=== PATIENT | female | born 1975 | race Caucasian/White ===

== ENCOUNTER → 2017-06-29 | Outpatient (REF) | payer BC, OTHER ==
[2017-06-29 19:20] LABS: RHEUMATOID FACTOR QUANT < 10.0 IU/ML (0-15.0)
[2017-07-02 00:07] LABS: ANTINUCLEAR ANTIBODIES DIRECT Negative (Negative); Lyme Disease IgG/IgM Antibodie <0.91 ISR (0.00-0.90); Lyme Disease IgM Ab Quantitati <0.80 index (0.00-0.79)
== END ==
LOC: M LAB REF 18:00
DX: M25.50 Pain in unspecified joint (principal); M79.1 Myalgia

== ENCOUNTER → 2017-07-09 | Outpatient (REF) | payer OTHER | LOC: M SFHCLERA 10:17 | DX: M54.5 Low back pain (principal) | CPT/HCPCS: 87186 ==

== ENCOUNTER → 2017-07-27 | Outpatient (REF) | payer OTHER | LOC: M LAB REF 12:40 | DX: N39.0 Urinary tract infection, site not specified (principal); M54.5 Low back pain ==

== ENCOUNTER → 2017-08-16 | Outpatient (REF) | payer OTHER | LOC: M LAB REF 09:48 | DX: K58.0 Irritable bowel syndrome with diarrhea (principal) ==

== ENCOUNTER → 2018-09-20 | Outpatient (REF) | payer OTHER ==
[2018-09-20 12:22] LABS: PERCENT SATURATION 25.3 % (13.2-45.0)
== END ==
LOC: M LAB REF 11:45
PROVIDERS: ATTEND Internal Medicine
DX: N92.0 Excessive and frequent menstruation with regular cycle (principal)

== ENCOUNTER → 2019-03-08 | Outpatient (CLI) | payer BC, OTHER ==
--- NOTE | 2019-03-08 16:24 | REP ---
Two-view chest: 03/08/2019. Indication: Cough. Dyspnea. Comparison: None. Findings: The lungs are clear. There is no significant pleural fluid or pneumothorax. Mediastinum and cardiac silhouettes are unremarkable. Impression: No acute cardiopulmonary process. Electronically Signed by Devan Downey DO 03/08/2019 04:16 P
== END ==
LOC: M LRY 16:02
PROVIDERS: ATTEND Nurse Practitioner Family
DX: R05 Cough (principal)

== ENCOUNTER → 2020-02-18 | Outpatient (CLI) | payer BC, OTHER ==
[2020-02-20 10:43] LABS: THYROGLOBULIN ANTIBODY 42.3 U/ML (<60.0); THYROID PEROXIDASE ANTIBODY 74.7 U/ML (<60.0)
== END ==
LOC: M WUC 09:06
PROVIDERS: ATTEND Internal Medicine
DX: R94.6 Abnormal results of thyroid function studies (principal)

== ENCOUNTER → 2021-11-19 | Outpatient (REF) | payer BC, OTHER | LOC: M SFHCDERM 14:23 | PROVIDERS: ATTEND Dermatology | DX: D22.9 Melanocytic nevi, unspecified (principal) ==

== ENCOUNTER → 2022-03-10 | Outpatient (CLI) | payer BC, OTHER | LOC: M WHC 15:25 | PROVIDERS: ATTEND Advanced Practice Midwife | DX: N92.6 Irregular menstruation, unspecified (principal) ==

== ENCOUNTER → 2023-05-08 | Outpatient (REF) | payer BC, OTHER ==
[2023-05-11 13:07] LABS: SSA SJOGRENS A <0.2 AI (0.0-0.9); SSB SJOGRENS B <0.2 AI (0.0-0.9)
== END ==
LOC: M LAB REF 16:41
PROVIDERS: ATTEND Internal Medicine
DX: K21.9 Gastro-esophageal reflux disease without esophagitis (principal)

== ENCOUNTER → 2023-05-15 | Outpatient (CLI) | payer BC, OTHER | LOC: M RAD 11:56 | PROVIDERS: ATTEND Internal Medicine | DX: E07.9 Disorder of thyroid, unspecified (principal) ==

== ENCOUNTER → 2023-06-13 | Outpatient (REF) | payer BC, OTHER | LOC: M LAB REF 10:45 | PROVIDERS: ATTEND Nurse Practitioner Family | DX: R19.7 Diarrhea, unspecified (principal) ==

== ENCOUNTER 2023-07-21 11:40 | Day surgery (SDC) | payer BC, OTHER ==
[~2023-07-21] VITALS: Ht 154.9 cm; Wt 106.0 kg
[~2023-07-21 11:40] MED LIST: IRBE75TA11 PO; PANT40TA29 PO; THERTAB52 PO
[2023-07-21] MEDS ORDERED: propofoL 200 MG/20 ML VIAL As Ordered ONE (12:48)
[2023-07-21] MEDS ORDERED: LIDOCAINE 2% 100MG/5ML SDV (FOR ANES.) As Ordered ONE (12:48)
[2023-07-21] MEDS ORDERED: fentaNYL 100 MCG/2 ML INJECTION As Ordered ONE (12:48)
[2023-07-21] MEDS: NS 1,000 ML IV ONE (12:50)
[2023-07-21 14:07] VITALS: TEMP 99.9
[2023-07-21 14:35] VITALS: BP 122/78; O2SAT 99
== END 2023-07-21 14:45 | disposition home or self-care (01) ==
LOC: M OPP 11:40
PROVIDERS: ATTEND Internal Medicine Gastroenterology
DX: R10.13 Epigastric pain (principal); K29.70 Gastritis, unspecified, without bleeding; K44.9 Diaphragmatic hernia without obstruction or gangrene; K21.9 Gastro-esophageal reflux disease without esophagitis; K64.8 Other hemorrhoids; K31.7 Polyp of stomach and duodenum; K58.9 Irritable bowel syndrome, unspecified; K57.30 Diverticulosis of large intestine without perforation or abscess without bleeding; K64.4 Residual hemorrhoidal skin tags; K22.89 Other specified disease of esophagus; I10 Essential (primary) hypertension; Z79.899 Other long term (current) drug therapy
CPT/HCPCS: 43239; 45385; 88305; J3010

== ENCOUNTER → 2023-08-08 | Outpatient (CLI) | payer BC, OTHER ==
[2023-08-08 14:56] LABS: BLOOD UREA NITROGEN 15 MG/DL (9-23); CREATININE FOR GFR 0.71 MG/DL (0.55-1.30); GLOMERULAR FILTRATION RATE > 60.0 (>51)
== END ==
LOC: M LAB 14:09
PROVIDERS: ATTEND Nurse Practitioner Family
DX: K86.81 Exocrine pancreatic insufficiency (principal)

== ENCOUNTER → 2023-09-24 | Outpatient (CLI) | payer BC ==
[~2023-09-24] MED LIST changes: +PROHANCE 279.3MG/ML 15ML VIAL As Ordered ONE; +PROHANCE 279.3MG/ML 5ML VIAL As Ordered ONE
== END ==
LOC: M RAD 15:58
PROVIDERS: ATTEND Nurse Practitioner Family
DX: K86.81 Exocrine pancreatic insufficiency (principal)

== ENCOUNTER → 2023-12-29 | Outpatient (REF) | payer BC, OTHER ==
[~2023-12-29] MED LIST changes: -PROHANCE 279.3MG/ML 15ML VIAL As Ordered ONE; -PROHANCE 279.3MG/ML 5ML VIAL As Ordered ONE
[2023-12-29 19:43] LABS: FERRITIN 5.3 NG/ML (7.3-270.7)
== END ==
LOC: M LAB REF 16:44
PROVIDERS: ATTEND Internal Medicine
DX: D64.9 Anemia, unspecified (principal)

== ENCOUNTER → 2024-03-08 | Outpatient (CLI) | payer BC ==
[2024-03-08 18:29] LABS: HEMOGLOBIN 12.6 g/dl (12.0-15.5); MEAN CORPUSCULAR HEMOGLOBIN 24.8 pg (27.0-33.0); MEAN CORPUSCULAR VOLUME 82.7 fl (80.0-96.0); PLATELET COUNT, AUTOMATED 319 10^3/uL (150-450); RED BLOOD COUNT 5.08 10^6/uL (4.00-5.40); WHITE BLOOD COUNT 7.3 10^3/uL (4.0-10.0)
[2024-03-08 18:58] LABS: ALBUMIN 3.6 G/DL (3.2-5.2); ALKALINE PHOSPHATASE 131 U/L (46-116); ALT/SGPT 18 U/L (7.0-40); AST/SGOT 11 U/L (<34); BILIRUBIN,TOTAL 0.4 MG/DL (0.3-1.2); BLOOD UREA NITROGEN 14 MG/DL (9-23); CALCIUM LEVEL 9.4 MG/DL (8.5-10.1); CARBON DIOXIDE LEVEL 29 MMOL/L (20-31); CHLORIDE LEVEL 106 MMOL/L (98-107); CREATININE FOR GFR 0.81 MG/DL (0.55-1.30); GLOMERULAR FILTRATION RATE > 60.0 (>51); GLUCOSE, FASTING 86 MG/DL (60-100); HCG, SERUM QUANTITATIVE < 2.6 MIU/ML (<4.2); POTASSIUM SERUM 4.4 MMOL/L (3.5-5.1); SODIUM LEVEL 137 MMOL/L (136-145); TOTAL PROTEIN 7.4 G/DL (5.7-8.2)
[2024-03-08 19:02] LABS: THYROID STIMULATING HORMONE 2.082 uIU/ML (0.55-4.78)
[2024-03-08 19:24] LABS: HEMOGLOBIN A1c 5.3 % (4.0-6.0)
== END ==
LOC: M PLALAB 16:07
PROVIDERS: ATTEND Obstetrics & Gynecology
DX: N39.9 Disorder of urinary system, unspecified (principal)

== ENCOUNTER → 2024-03-22 | Outpatient (CLI) | payer BC | LOC: M RAD 13:04 | PROVIDERS: ATTEND Obstetrics & Gynecology | DX: N93.9 Abnormal uterine and vaginal bleeding, unspecified (principal) ==

== ENCOUNTER 2024-04-17 20:15 | Emergency (ER) | payer BC ==
[~2024-04-17] VITALS: Ht 154.9 cm; Wt 109.2 kg
[2024-04-17 20:18] VITALS: BP 195/86; TEMP 96.5; O2SAT 100
[2024-04-17] MEDS: ONDANSETRON 4MG 2ML VIAL IV ONE (21:22)
[2024-04-17] MEDS: KETOROLAC 30 MG/ML 1ML VIAL IV ONE (21:22)
[2024-04-17] MEDS: METHOCARBAMOL 1,000 MG/10 ML VIAL IV ONE (21:22)
[2024-04-17] MEDS: MORPHINE 4 MG/ML 1ML VIAL IV PRN (21:22)
[2024-04-17] MEDS ORDERED: NAPR-837 PO (23:44)
[2024-04-17] MEDS ORDERED: METH-1165 PO (23:44)
[2024-04-17] MEDS ORDERED: PERC5TAB12 PO (23:44)
[2024-04-18] MEDS: OXYCODONE/APAP 5MG/325MG(HOME DOSE PACK) PO ONE (00:07)
== END 2024-04-18 00:27 | disposition home or self-care (01) ==
LOC: M ED 20:15
DX: G54.2 Cervical root disorders, not elsewhere classified (principal); K21.9 Gastro-esophageal reflux disease without esophagitis; Z79.899 Other long term (current) drug therapy
CPT/HCPCS: 72141; 96374; 96375; 99284; J1885; J2405; J2800

== ENCOUNTER → 2024-10-06 | Outpatient (CLI) | payer BC ==
[~2024-10-06] MED LIST changes: +METH-1165 PO; +NAPR-837 PO; +PERC5TAB12 PO
== END ==
LOC: M RAD 15:39
PROVIDERS: ATTEND Obstetrics & Gynecology
DX: N93.9 Abnormal uterine and vaginal bleeding, unspecified (principal)

== ENCOUNTER → 2024-12-20 | Outpatient (REF) | payer BC | LOC: M PLALAB 14:10 | PROVIDERS: ATTEND Obstetrics & Gynecology | DX: N93.9 Abnormal uterine and vaginal bleeding, unspecified (principal); Z80.49 Family history of malignant neoplasm of other genital organs ==